=== PATIENT | male | born 1990 | race Asian ===

== ENCOUNTER 2024-01-15 07:33 | Outpatient (AMB) | payer OTHER, SELFPAY ==
--- NOTE | 2024-01-15 07:36 | A.OFFPC_ITS ---
Vital Signs 01/15/24 07:45 Height 5 ft 8 in Weight 177 lb BMI 26.9 BP 108/80 Blood Pressure Location Lt brachial Position Sitting Pulse 76 Pulse Source Pulse Oximeter Pulse Oximetry (%) 97 Oxygen Delivery Method Room Air Intake Visit Reasons: TOUCH UP EDGER PE Intake Note: Pt is here today as a New Patient PE Allergies No Known Allergies Allergy (Verified 01/15/24 07:46) Medication List - Last Reconciled 01/15/24 by Rhonda Flood MD No Known Home Meds Tobacco use date assessed: 01/15/24 Dental Screening Dental Screen Date: 01/15/24 Did you have a dental visit in the last 12 months?: No Did you have a dental problem in the last 6 months where you did not have access to dental care?: No Was dental information given to patient?: No HPI TOUCH UP EDGER PE HPI Details Pt presents for TOUCH UP EDGER PE. Patient moved from [facility] He was treated for tuberculosis in [place] about 14 years. Patient complains of intermittent rectal bleeding after eating spicy foods. He denies stool mixed with the blood , abdominal pain weight loss fever chills. 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 1. Little interest or pleasure in doing things: not at all 2. Feeling down, depressed, or hopeless: not at all 3. Trouble falling or staying asleep, or sleeping too much: not at all 4. Feeling tired or having little energy: not at all 5. Poor appetite or overeating: not at all 6. Feeling bad about yourself - or that you are a failure or have let yourself or your family down: not at all 7. Trouble concentrating on things, such as reading the newspaper or watching television: not at all 8. Moving or speaking so slowly that other people could have noticed. Or the opposite - being so fidgety or restless that you have been moving around a lot more than usual: not at all 9. Thoughts that you would be better off or of hurting yourself in some way: not at all Total score: 0 Depression Screening Interpretation: Negative Depression Screening Done: Yes 99567 - PHQ-9 Billing: Yes Source: Developed by Drs. Jeremy Bonilla, Evi Akins, Bernardo Mott and colleagues, with an educational adair from [employer]. Thrive Questionnaire Date Thrive assessed: 01/15/24 I am a: Patient What is your living situation today?: I have a steady place to live Within the past 12 months, did the food you bought not last and you didn't have the money to get more?: I choose not to answer this question Within the past 12 months, did you worry whether your food would run out before you got money to buy more?: I choose not to answer this question Do you have trouble paying for medicines?: I choose not to answer this question Do you have trouble getting transportation to medical appointments?: I choose not to answer this question Do you have trouble paying your heating and electricity bill?: I choose not to answer this question Do you have trouble taking care of your child, family member or friend?: I choose not to answer this question Do you have trouble with day-to-day activities such as bathing, preparing meals, shopping, managing finances, etc.?: I choose not to answer this question Are you currently unemployed and looking for a job?: I choose not to answer this question Are you interested in more education?: I choose not to answer this question Please select the resources that you would like help with: Paying for medicine Currently or been in a relationship where the following occur: I choose not to answer THRIVE Score: 0 AUDIT C Alcohol Use Questionnaire (AUDIT-C) 1. How often do you have a drink containing alcohol?: Monthly or less 2. How many drinks containing alcohol do you have on a typical day when you are drinking?: 1 or 2 3. How often do you have six or more drinks on one occasion?: Never Total Score: 1 PENG-7 AMB Questionnaire PENG-7 Date PENG - 7 assessed: 01/15/24 Feeling nervous, anxious, or on edge: 0 = Not at all Not being able to stop or control worryin = Not at all Worrying too much about different things: 0 = Not at all Trouble relaxin = Not at all Being so restless that it is hard to sit still: 0 = Not at all Becoming easily annoyed or irritable: 0 = Not at all Feeling afraid as if something awful might happen: 0 = Not at all Total PENG-7 score (0-4 normal; 5-9 mild; 10-14 moderate; 15-21 severe): 0 Source: Developed by Drs. Jeremy Bonilla, Evi Akins, Bernardo Mott and colleagues, with an educational adair from [employer]. Review of Systems Const All systems reviewed & are unremarkable except as noted in HPI and below Reports no additional complaints Eyes Reports no additional complaints ENT Reports no additional complaints Card Reports no additional complaints Resp Reports no additional complaints GI Reports no additional complaints Reports no additional complaints Physical exam (Primary Care) Vital Signs: Last Vital Signs Pulse 76 01/15/24 07:45 BP 108/80 01/15/24 07:45 Pulse Ox 97 01/15/24 07:45 Oxygen Delivery Method Room Air 01/15/24 07:45 BMI result Body Mass Index 26.9 Tobacco/Smoking Status: Tobacco use Status Tobacco use date assessed 01/15/24 01/15/24 07:49 Patient Tobacco Use Status Never used Tobacco 01/15/24 07:49 e-Cigarette/Vaping Use Never Used 01/15/24 07:49 PHQ-9: PHQ-9 Score PHQ-9: Total score 0 01/15/24 07:49 Depression Screening Interpretation: Negative Thrive Assessment: Date of Thrive Assessment Date Thrive assessed 01/15/24 01/15/24 07:49 Currently or been in a relationship where the following occur: I choose not to answer Const General: no acute distress HENMT Head: Yes normal to inspection Ears: hearing grossly normal bilaterally General nose exam: Normal external nose present Face and sinus: Yes normal facial exam Mouth: Normal oral and palatal mucosa present Throat: Yes posterior oropharynx normal Eyes General: appearance normal, both eyes and all related structures Neck Neck: Yes no lymphadenopathy and Yes supple Resp Effort & Inspection: normal respiratory effort Auscultation: clear to auscultation bilaterally Cardio Rhythm: regular rhythm Heart sounds: S1 normal heart sound present and S2 normal heart sound present GI Inspection: Yes normal to inspection Palpation (GI): Soft to palpation Percussion: Yes normal to percussion Auscultation: normal bowel sounds Assessment and Plan Assessment & Plan (1) Tuberculosis: Comment: in [place] Code(s): A15.9 - Respiratory tuberculosis unspecified (2) Annual physical exam: Code(s): Z00.00 - Encounter for general adult medical examination without abnormal findings Plan: WELL-BALANCED DIET REGULAR PHYSICAL ACTIVITY DISCUSSED WITH THE PATIENT. HE WILL HAVE A FASTING BLOOD WORK TODAY. (3) Rectal bleed: Code(s): K62.5 - Hemorrhage of anus and rectum Plan: Patient will be referred to GI for evaluation on intermittent rectal bleeding. Orders: Orders Comprehensive [place]. Panel Fast Today A15.9 - Respiratory tuberculosis unspecified, Z00.00 - Encounter for general adult medical examination without abnormal findings Complete Blood Count Auto Diff Today A15.9 - Respiratory tuberculosis unspecified, Z00.00 - Encounter for general adult medical examination without abnormal findings UA w Microscopic Today A15.9 - Respiratory tuberculosis unspecified, Z00.00 - Encounter for general adult medical examination without abnormal findings Lipid Panel Today A15.9 - Respiratory tuberculosis unspecified, Z00.00 - Encounter for general adult medical examination without abnormal findings Hepatitis B,C Profile Today A15.9 - Respiratory tuberculosis unspecified, Z00.00 - Encounter for general adult medical examination without abnormal findings Referrals Gastroenterology Referral A15.9 - Respiratory tuberculosis unspecified, Z00.00 - Encounter for general adult medical examination without abnormal findings Coding Level of Care Code New Pt Prev Care 18-39yr(09125 Diagnoses Tuberculosis A15.9 Annual physical exam Z00.00 Rectal bleed K62.5
[2024-01-15 07:45] VITALS: BP 108/80; PULSE 76; O2SAT 97; BMI 26.9
== END 2024-01-15 08:33 | disposition home or self-care (01) ==
PROVIDERS: PCP Internal Medicine; Visit Provider Internal Medicine
DX: A15.9 Respiratory tuberculosis unspecified (principal); Z00.00 Encounter for general adult medical examination without abnormal findings; K62.5 Hemorrhage of anus and rectum
CPT/HCPCS: 99385

== ENCOUNTER 2024-01-15 08:19 | Outpatient (REF) | payer OTHER, SELFPAY ==
[2024-01-15 10:25] LABS: MANUAL DIFF FLAG NO
[2024-01-15 10:34] LABS: Basophils Percent Auto 0.8 % (0-2); Eosinophils Absolute Auto 0.1 X10*3/uL (0.0-0.4); Eosinophils Percent Auto 3.6 % (0-4); Hematocrit 41.8 % (42.0-52.0); Hemoglobin 14.5 g/dl (14.0-18.0); Imm Gran Abs Auto 0.01 X10*3/uL (0.00-0.03); Imm Gran Pct Auto 0.3 % (0.0-0.4); Lymphocytes Absolute Auto 1.1 X10*3/uL (1.2-4.9); Lymphocytes Percent Auto 28.9 % (20-40); Mean Corpuscular HGB Conc 34.7 g/dl (31.0-36.0); Mean Corpuscular Hemoglobin 31.3 pg (27.0-33.0); Mean Corpuscular Volume 90.1 fL (80.0-98.0); Mean Platelet Volume 10.8 fL (9.4-12.4); Monocytes Absolute Auto 0.3 X10*3/uL (0.1-1.2); Monocytes Percent Auto 7.2 % (2-11); Neutrophils Absolute Auto 2.3 x10*3/uL (2.0-8.3); Neutrophils Percent Auto 59.2 % (45-73); Platelet Count 198 X10*3/uL (160-400); Red Blood Count 4.64 X10*6/uL (4.60-5.80); Red Cell Distribution Width 11.9 % (11.0-16.0); White Blood Count 3.9 X10*3/uL (4.8-10.8)
[2024-01-15 10:43] LABS: Appearance Urine Turbid; Color Urine Yellow; Glucose Urine UA Negative (Negative); Leukocyte Esterase Urine Negative (Negative); Nitrite Urine Negative (Negative); PH 5.5 (5.0-9.0); Specific Gravity - Urine >= 1.030 (1.005-1.025); Urine Blood Negative (Negative); Urine Ketones Negative (Negative); Urine Protein Trace mg/dL (Neg-Trace)
[2024-01-15 10:47] LABS: Alanine Aminotransferase 23 U/L (0-40); Albumin Level 4.8 g/dL (3.5-5.0); Alkaline Phosphatase 54 U/L (39-117); Anion Gap 13 (12-20); Aspartate Amino Transferase 19 U/L (5-37); Bilirubin Total 0.4 mg/dL (0.0-1.0); Blood Urea Nitrogen 19 mg/dL (9-16); Calcium 9.6 mg/dL (8.4-10.2); Carbon Dioxide 23 mmol/L (22-29); Chloride 110 mmol/L (96-108); Cholesterol 231 mg/dL (<200); Estimated Glomerular Filt Rate > 60; Glucose Fasting 117 mg/dL (60-99); HDL Cholesterol 62 mg/dL (>40); LDL Cholesterol Calculated 155 mg/dL (<100); Potassium 3.6 mmol/L (3.3-5.1); Sodium 142 mmol/L (135-145); Total Protein 7.6 g/dL (6.5-8.0); Triglycerides 72 mg/dL (<150)
[2024-01-15 10:51] LABS: Bacteria Urine None Seen (None Seen); Hyaline Casts Urine 0-2 /LPF (0-2); RBC Urine 0-2 /HPF (0-2); Squamous Epithelial Cell Urine 0-2 /HPF (0-2); WBC Urine 0-5 /HPF (0-5)
[2024-01-15 11:08] LABS: HBS Num1 213.14 mIU/mL (0-7.99); HBc Num1 1.96 S/CO (0.00-0.79); HBsAGNum1 0.24 S/CO (0.00-0.99); Hepatitis B Surface Antigen Negative (Negative); ~Hepatitis B Surface Antibody REACTIVE (Nonreactive); ~Hepatitis C Antibody Nonreactive (Nonreactive)
[2024-01-15 13:00] LABS: HBc Num2 1.87 S/CO; HBc Num3 1.85 S/CO
[2024-01-15 13:01] LABS: Hepatitis B Core Antibody Reactive (Nonreactive)
== END 2024-01-15 08:20 | disposition home or self-care (01) ==
LOC: HO.HMGCLDS 08:19
PROVIDERS: PCP Internal Medicine; Visit Provider Internal Medicine
DX: Z00.00 Encounter for general adult medical examination without abnormal findings (principal); A15.9 Respiratory tuberculosis unspecified
CPT/HCPCS: 36415; 80053; 80061; 81001; 85025; 86704; 86706; 86803; 87340

== ENCOUNTER 2024-02-25 09:49 | Outpatient (AMB) | payer OTHER, SELFPAY ==
--- NOTE | 2024-02-25 10:09 | MHC.PC.OV ---
Vital Signs 02/25/24 10:10 Height 5 ft 8 in Weight 170 lb BMI 25.8 BP 118/80 Blood Pressure Location Lt brachial Position Sitting Pulse 65 Pulse Source Pulse Oximeter Pulse Oximetry (%) 99 Oxygen Delivery Method Room Air Intake Visit Reasons: Regular visit Intake Note: Pt is here today for a follow up visit. Allergies No Known Allergies Allergy (Verified 02/25/24 10:11) Medication List - Last Reconciled 02/25/24 by Rhonda Flood MD No Known Home Meds Tobacco use date assessed: 02/25/24 Dental Screening Dental Screen Date: 01/15/24 HPI Regular visit HPI Details Pt presents for f/u hyperlipid and hyperglycemia. Patient has been modifying his diet for the last month following ADA diet and trying to cut down on red meat. 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[facility], works at restaurant Housing: Apartment Patient Tobacco Use Status: Never used Tobacco e-Cigarette/Vaping Use: Never Used service: No Current occupational status: employed Cognitive needs: No Hearing needs: No Vision needs: Yes Questionnaire Thrive Questionnaire Date Thrive assessed: 01/15/24 I am a: Patient What is your living situation today?: I have a steady place to live Within the past 12 months, did the food you bought not last and you didn't have the money to get more?: I choose not to answer this question Within the past 12 months, did you worry whether your food would run out before you got money to buy more?: I choose not to answer this question Do you have trouble paying for medicines?: I choose not to answer this question Do you have trouble getting transportation to medical appointments?: I choose not to answer this question Do you have trouble paying your heating and electricity bill?: I choose not to answer this question Do you have trouble taking care of your child, family member or friend?: I choose not to answer this question Do you have trouble with day-to-day activities such as bathing, preparing meals, shopping, managing finances, etc.?: I choose not to answer this question Are you currently unemployed and looking for a job?: I choose not to answer this question Are you interested in more education?: I choose not to answer this question Please select the resources that you would like help with: Paying for medicine Currently or been in a relationship where the following occur: I choose not to answer THRIVE Score: 0 PENG-7 AMB Questionnaire PENG-7 Date PENG - 7 assessed: 01/15/24 Source: Developed by Drs. Jeremy Bonilla, Evi Akins, Bernardo Mott and colleagues, with an educational adair from [employer]. Review of Systems Const All systems reviewed & are unremarkable except as noted in HPI and below ENT Reports no additional complaints Card Reports no additional complaints Resp Reports no additional complaints GI Reports no additional complaints Reports no additional complaints Physical exam (Primary Care) Vital Signs: Last Vital Signs Pulse 65 02/25/24 10:10 BP 118/80 02/25/24 10:10 Pulse Ox 99 02/25/24 10:10 Oxygen Delivery Method Room Air 02/25/24 10:10 BMI result Body Mass Index 25.8 Tobacco/Smoking Status: Tobacco use Status Tobacco use date assessed 02/25/24 02/25/24 10:13 Patient Tobacco Use Status Never used Tobacco 02/25/24 10:13 e-Cigarette/Vaping Use Never Used 02/25/24 10:13 Thrive Assessment: Date of Thrive Assessment Date Thrive assessed 01/15/24 02/25/24 10:13 Currently or been in a relationship where the following occur: I choose not to answer Const General: no acute distress HENMT Face and sinus: Yes normal facial exam Neck Neck: Yes supple Resp Effort & Inspection: normal respiratory effort Auscultation: clear to auscultation bilaterally Cardio Rhythm: regular rhythm Heart sounds: S1 normal heart sound present and S2 normal heart sound present GI Inspection: Yes normal to inspection Results AMB Hemoglobin A1c AMB Hemoglobin A1c 5.6 % Last Edit by PRISCILLA Day on 02/25/24 10:57 Coding Level of Care Code Est Pt Level 4 (83120) Diagnoses Hyperlipidemia E78.5 Hyperglycemia R73.9 Assessment & Plan Assessment & Plan (1) Hyperlipidemia: Code(s): E78.5 - Hyperlipidemia, unspecified Category: Medical Plan: Low-cholesterol diet increase physical activity discussed with the patient check lipid profile in 3 months (2) Hyperglycemia: Code(s): R73.9 - Hyperglycemia, unspecified Category: Medical Plan: A1c is 5.6 today, ADA diet increase exercise discussed with the patient, A1c will be rechecked in 3 months Orders: Orders Lipid Panel 3 Months E78.5 - Hyperlipidemia, unspecified, R73.9 - Hyperglycemia, unspecified Comprehensive [place]. Panel Fast 3 Months E78.5 - Hyperlipidemia, unspecified, R73.9 - Hyperglycemia, unspecified Hemoglobin A1c 3 Months E78.5 - Hyperlipidemia, unspecified, R73.9 - Hyperglycemia, unspecified AMB Hemoglobin A1c Today Z13.9 - Encounter for screening, unspecified Medications: New hydrocortisone 2.5% 1 appl MO BID-QID PRN 30 grams 1RF hemorrhoids
[2024-02-25 10:10] VITALS: BP 118/80; PULSE 65; O2SAT 99; BMI 25.8
== END 2024-02-25 11:07 | disposition home or self-care (01) ==
PROVIDERS: PCP Internal Medicine; Visit Provider Internal Medicine
DX: E78.5 Hyperlipidemia, unspecified (principal); R73.9 Hyperglycemia, unspecified; Z13.9 Encounter for screening, unspecified

== ENCOUNTER → 2024-02-25 09:49 | Outpatient (BNVA) | payer OTHER, SELFPAY | PROVIDERS: PCP Internal Medicine; Visit Provider Internal Medicine | DX: E78.5 Hyperlipidemia, unspecified (principal); R73.9 Hyperglycemia, unspecified | CPT/HCPCS: 83036; 99212 ==

== ENCOUNTER 2025-02-09 10:08 | Outpatient (AMB) | payer OTHER, SELFPAY ==
[2025-02-09 10:17] VITALS: BP 110/78; PULSE 66; RESP 18; TEMP 36.7; O2SAT 99; BMI 25.2
--- NOTE | 2025-02-09 10:17 | MHC.PC.OV ---
Vital Signs 02/09/25 10:17 Height 5 ft 8 in Weight 166 lb BMI 25.2 BP 110/78 Blood Pressure Location Lt brachial Position Sitting Respiration 18 Pulse 66 Pulse Source Pulse Oximeter Temp 98.0 F Temp Source Oral Pulse Oximetry (%) 99 Oxygen Delivery Method Room Air Intake Visit Reasons: Annual PE Intake Note: Pt is here today for PE. Allergies No Known Allergies Allergy (Verified 02/09/25 10:18) Medication List - Last Reconciled 02/09/25 by Rhonda Flood MD No Known Home Meds Tobacco use date assessed: 02/09/25 Dental Screening Dental Screen Date: 02/09/25 Did you have a dental visit in the last 12 months?: Yes Did you have a dental problem in the last 6 months where you did not have access to dental care?: No Was dental information given to patient?: Patient has dentist HPI Annual PE HPI Details Pt presents for PE. [facility] Medical History (Updated 02/09/25 @ 10:57 by Rhonda Flood MD) Annual physical exam Hyperglycemia Hyperlipidemia Surgical History No pertinent past surgical history Family History Father DM (diabetes mellitus) Social History (Updated 02/09/25 @ 10:59 by Rhonda Flood MD) Household Members Other:: from [facility] Housing: Apartment Patient Tobacco Use Status: Never used Tobacco e-Cigarette/Vaping Use: Never Used service: No Current occupational status: employed Cognitive needs: No Hearing needs: No Vision needs: Yes Questionnaire PHQ-9 Over the last 2 weeks, how often have you been bothered by any of the following problems? 1. Little interest or pleasure in doing things: several days 2. Feeling down, depressed, or hopeless: nearly every day 3. Trouble falling or staying asleep, or sleeping too much: not at all 4. Feeling tired or having little energy: not at all 5. Poor appetite or overeating: not at all 6. Feeling bad about yourself - or that you are a failure or have let yourself or your family down: not at all 7. Trouble concentrating on things, such as reading the newspaper or watching television: not at all 8. Moving or speaking so slowly that other people could have noticed. Or the opposite - being so fidgety or restless that you have been moving around a lot more than usual: not at all 9. Thoughts that you would be better off or of hurting yourself in some way: not at all Total score: 4 Depression Screening Interpretation: Negative Depression Screening Done: Yes 36940 - PHQ-9 Billing: Yes Source: Developed by Drs. Jeremy Bonilla, Evi Akins, Bernardo Mott and colleagues, with an educational adair from [email or web address]. Thrive Questionnaire Date Thrive assessed: 02/09/25 I am a: Patient What is your living situation today?: I have a steady place to live Within the past 12 months, did the food you bought not last and you didn't have the money to get more?: Never true Within the past 12 months, did you worry whether your food would run out before you got money to buy more?: I choose not to answer this question Do you have trouble paying for medicines?: I choose not to answer this question Do you have trouble getting transportation to medical appointments?: I choose not to answer this question Do you have trouble paying your heating and electricity bill?: I choose not to answer this question Do you have trouble taking care of your child, family member or friend?: I choose not to answer this question Do you have trouble with day-to-day activities such as bathing, preparing meals, shopping, managing finances, etc.?: I choose not to answer this question Are you currently unemployed and looking for a job?: I choose not to answer this question Are you interested in more education?: I choose not to answer this question Please select the resources that you would like help with: Paying for medicine and None Currently or been in a relationship where the following occur: I choose not to answer THRIVE Score: 0 AUDIT C Alcohol Use Questionnaire (AUDIT-C) 1. How often do you have a drink containing alcohol?: Never 3. How often do you have six or more drinks on one occasion?: Never Total Score: 0 PENG-7 AMB Questionnaire PENG-7 Date PENG - 7 assessed: 02/09/25 Feeling nervous, anxious, or on edge: 0 = Not at all Not being able to stop or control worryin = Not at all Worrying too much about different things: 0 = Not at all Trouble relaxin = Not at all Being so restless that it is hard to sit still: 0 = Not at all Becoming easily annoyed or irritable: 0 = Not at all Feeling afraid as if something awful might happen: 0 = Not at all Total PENG-7 score (0-4 normal; 5-9 mild; 10-14 moderate; 15-21 severe): 0 Source: Developed by Drs. Jeremy Bonilla, Evi Akins, Bernardo Mott and colleagues, with an educational adair from [email or web address]. PENG-7 Assessment Billing PENG-7 Assessment Tool: PENG-7 Assessment 81335 Review of Systems Const All systems reviewed & are unremarkable except as noted in HPI and below Eyes Reports no additional complaints ENT Reports no additional complaints Card Reports no additional complaints Resp Reports no additional complaints GI Reports no additional complaints Reports no additional complaints Physical exam (Primary Care) Vital Signs: Last Vital Signs Temp 98.0 F 02/09/25 10:17 Pulse 66 02/09/25 10:17 Resp 18 02/09/25 10:17 BP 110/78 02/09/25 10:17 Pulse Ox 99 02/09/25 10:17 Oxygen Delivery Method Room Air 02/09/25 10:17 BMI result Body Mass Index 25.2 Tobacco/Smoking Status: Tobacco use Status Tobacco use date assessed 02/09/25 02/09/25 10:18 Patient Tobacco Use Status Never used Tobacco 02/09/25 10:18 e-Cigarette/Vaping Use Never Used 02/09/25 10:18 PHQ-9: PHQ-9 Score PHQ-9: Total score 4 02/09/25 10:18 Depression Screening Interpretation: Negative Thrive Assessment: Date of Thrive Assessment Date Thrive assessed 02/09/25 02/09/25 10:18 Currently or been in a relationship where the following occur: I choose not to answer Const General: no acute distress HENMT Head: Yes normal to inspection Face and sinus: Yes normal facial exam Mouth: Normal oral and palatal mucosa present Throat: Yes posterior oropharynx normal Eyes General: appearance normal, both eyes and all related structures Neck Neck: Yes no lymphadenopathy and Yes supple Resp Effort & Inspection: normal respiratory effort Auscultation: clear to auscultation bilaterally Cardio Rhythm: regular rhythm Heart sounds: S1 normal heart sound present and S2 normal heart sound present GI Inspection: Yes normal to inspection Palpation (GI): Soft to palpation Percussion: Yes normal to percussion Auscultation: normal bowel sounds Coding Level of Care Code Est Pt Prev Care 18-39y(62246) Diagnoses Seasonal allergies J30.2 Annual physical exam Z00.00 Additional Codes PENG-7 Assessment Billing - PENG-7 Assessment Tool: PENG-7 Assessment [id number] ([id number]) PHQ-9 - 32938 - PHQ-9 Billing: Yes ([id number]) Assessment & Plan Assessment & Plan (1) Seasonal allergies: Code(s): J30.2 - Other seasonal allergic rhinitis Category: Medical Plan: refer to Allergy (2) Annual physical exam: Code(s): Z00.00 - Encounter for general adult medical examination without abnormal findings Category: Medical Plan: Well-balanced diet regular physical activity discussed with the patient. He will have a fasting blood work today. For intermittent rectal bleeding Cologuard will be checked. Hemorrhoids care discussed with the patient Orders: Orders Comprehensive [place]. Panel Fast Today Z00.00 - Encounter for general adult medical examination without abnormal findings Lipid Panel Today Z00.00 - Encounter for general adult medical examination without abnormal findings Complete Blood Count Auto Diff Today Z00.00 - Encounter for general adult medical examination without abnormal findings UA w Microscopic Today Z00.00 - Encounter for general adult medical examination without abnormal findings Hemoglobin A1c Today Z00.00 - Encounter for general adult medical examination without abnormal findings Referrals Allergy & Immunology Referral J30.2 - Other seasonal allergic rhinitis Cologuard Test Z00.00 - Encounter for general adult medical examination without abnormal findings, Z12.11 - Encounter for screening for malignant neoplasm of colon, Z12.12 - Encounter for screening for malignant neoplasm of rectum
== END 2025-02-09 11:02 | disposition home or self-care (01) ==
LOC: HO.HMCC 10:09
PROVIDERS: PCP Internal Medicine; Visit Provider Internal Medicine
DX: J30.2 Other seasonal allergic rhinitis (principal); Z00.00 Encounter for general adult medical examination without abnormal findings

== ENCOUNTER 2025-02-09 10:08 | Outpatient (REF) | payer OTHER, SELFPAY ==
[2025-02-09 13:21] LABS: MANUAL DIFF FLAG NO
[2025-02-09 13:39] LABS: Appearance Urine Clear; Glucose Urine UA Negative (Negative); PH 6.0 (5.0-9.0); Specific Gravity - Urine 1.025 (1.005-1.025)
[2025-02-09 14:05] LABS: Hematocrit 42.9 % (42.0-52.0); Hemoglobin 14.1 g/dl (14.0-18.0); Imm Gran Abs Auto 0.01 X10*3/uL (0.00-0.03); Imm Gran Pct Auto 0.2 % (0.0-0.4); Lymphocytes Absolute Auto 1.4 X10*3/uL (1.2-4.9); Mean Corpuscular HGB Conc 32.9 g/dl (31.0-36.0); Mean Corpuscular Hemoglobin 30.2 pg (27.0-33.0); Mean Corpuscular Volume 91.9 fL (80.0-98.0); NRBC Abs Auto 0.000 X10*3/uL (0.0-0.012); NRBC Pct Auto 0.0 /100WBC (0.0-0.2); Platelet Count 187 X10*3/uL (160-400); Red Blood Count 4.67 X10*6/uL (4.60-5.80); White Blood Count 4.2 X10*3/uL (4.8-10.8)
[2025-02-09 17:12] LABS: Alanine Aminotransferase 36 U/L (0-40); Albumin Level 5.0 g/dL (3.5-5.0); Alkaline Phosphatase 57 U/L (39-117); Anion Gap 14 (12-20); Aspartate Amino Transferase 32 U/L (5-37); Blood Urea Nitrogen 17 mg/dL (9-16); Calcium 9.4 mg/dL (8.4-10.2); Carbon Dioxide 24 mmol/L (22-29); Chloride 107 mmol/L (96-108); Cholesterol 224 mg/dL (<200); Estimated Glomerular Filt Rate > 60; HDL Cholesterol 66 mg/dL (>40); Potassium 4.3 mmol/L (3.3-5.1); Sodium 141 mmol/L (135-145); Total Protein 7.8 g/dL (6.5-8.0); Triglycerides 63 mg/dL (<150)
== END 2025-02-09 10:09 | disposition home or self-care (01) ==
LOC: HO.HMGCLDS 10:08
PROVIDERS: PCP Internal Medicine; Visit Provider Internal Medicine
DX: Z00.00 Encounter for general adult medical examination without abnormal findings (principal); J30.2 Other seasonal allergic rhinitis
CPT/HCPCS: 36415; 80053; 80061; 81001; 83036; 85025; 96127; 99395